=== PATIENT | female | born 1995 | race Caucasian/White ===

== ENCOUNTER 2018-04-08 16:17 | Emergency (ER) | payer MEDICAID ==
[2018-04-08 16:55] VITALS: BP 110/69
--- NOTE | 2018-04-08 17:31 | RADIOLOGY REPORT (SQ) ---
EXAM DESCRIPTION: HAND RIGHT 3 VIEWS COMPLETED DATE/TIME: 04/08/2018 5:19 pm REASON FOR STUDY: punched fixed object punched a dashboard 3 days ago, right hand pain COMPARISON: 03/30/2012 right hand three views EXAM PARAMETERS: NUMBER OF VIEWS: Three views. TECHNIQUE: AP, lateral and oblique radiographic images acquired of the right hand. LIMITATIONS: None. FINDINGS: MINERALIZATION: Normal. BONES: No acute fracture or dislocation. No worrisome bone lesions. JOINTS: No effusions. SOFT TISSUES: No soft tissue swelling. No foreign body. OTHER: No other significant finding. IMPRESSION: NEGATIVE STUDY OF THE RIGHT HAND. NO RADIOGRAPHIC EVIDENCE OF ACUTE INJURY. TECHNICAL DOCUMENTATION: JOB ID: [id number] [employer]- All Rights Reserved Reading location - IP/workstation name: [email or web address]
[2018-04-08] MEDS ORDERED: IBUPROFEN 600 MG TABLET PO ONE (18:18)
--- NOTE | 2018-04-08 18:21 | ER Document Report ---
HPI - HPI Pain Level: 4 Notes: Patient is a 23-year-old female who presents with chief complaint of right hand pain after she punched the dashboard in the car just prior to arrival. - CONSTITUTIONAL Constitutional: DENIES: Fever, Chills - EENT EENT: DENIES: Sore Throat, Ear Pain, Eye problems - NEURO Neurology: DENIES: Headache, Weakness, Vision blurred, Dizzinesss / Vertigo - CARDIOVASCULAR Cardiovascular: DENIES: Chest pain - RESPIRATORY Respiratory: DENIES: Trouble Breathing, Coughing - GASTROINTESTINAL Gastrointestinal: DENIES: Abdominal Pain, Black / Bloody Stools - URINARY Urinary: DENIES: Dysuria, Urgency, Frequency - REPRODUCTIVE Reproductive: DENIES: : - MUSCULOSKELETAL Musculoskeletal: REPORTS: Extremity pain Past Medical History - General Information source: Patient - Social History Smoking Status: Never Smoker Chew tobacco use (# tins/day): No Frequency of alcohol use: None Drug Abuse: None Family History: CAD, DM, Hypertension Patient has suicidal ideation: No Patient has homicidal ideation: No Neurological Medical History: Reports: Hx Migraine Renal/ Medical History: Denies: Hx Peritoneal Dialysis Psychiatric Medical History: Reports: Hx Anxiety, Hx Depression Past Surgical History: Reports: Hx Section - Immunizations Immunizations up to date: Yes Hx Diphtheria, Pertussis, Tetanus Vaccination: Yes Vertical Provider Document - CONSTITUTIONAL Notes: PHYSICAL EXAMINATION: GENERAL: Well-appearing, well-nourished and in no acute distress. HEAD: Atraumatic, normocephalic. EYES: Pupils equal round extraocular movements intact, conjunctiva are normal. ENT: Nares patent NECK: Normal range of motion LUNGS: No respiratory distress Musculoskeletal: Normal range of motion, swelling noted to dorsal surface of right hand over the fourth and fifth metacarpal. Capillary refill less than 3 seconds, normal motor and sensation distal to injury. NEUROLOGICAL: Normal speech, normal gait. PSYCH: Normal mood, normal affect. SKIN: Warm, Dry, normal turgor, no rashes or lesions noted. - INFECTION CONTROL TRAVEL OUTSIDE OF THE [place] IN LAST 30 DAYS: No Course - Re-evaluation Re-evalutation: 04/08/18 18:20 X-rays are negative for any acute findings, cap refill less than 3 seconds, normal motor and sensation distal to injury. Patient will be placed in Blaze wrap for comfort. Patient will be instructed to take ibuprofen for pain. Patient will be discharged in stable condition. - Vital Signs Vital signs: Temp Pulse Resp BP Pulse Ox 98.7 F 57 L 16 110/69 100 04/08/18 16:54 04/08/18 16:54 04/08/18 16:54 10 16:54 04/08/18 16:54 Discharge - Discharge Clinical Impression: Hand contusion Qualifiers: Encounter type: initial encounter Laterality: right Qualified Code(s): S60.221A - Contusion of right hand, initial encounter Condition: Stable Disposition: HOME, SELF-CARE Additional Instructions: Contusion Your injury has resulted in a contusion -- a crushing of the deep tissues. No injury to important structures was detected during the physician's exam. Contusions vary in the amount of pain they cause, and in the length of time required for healing. Typically, the area will become bruised, and will remain painful to touch for two or three weeks. However, most patients are back to working and playing within a few days. After the initial period of rest and cold-packs, your symptoms (together with the doctor's recommendations) will determine how rapidly you can get back to full activity. Usually this means "do what feels okay, but don't do things that hurt." If re-examination was recommended, it's important to follow up as instructed. Call the doctor or return any time if pain increases, if swelling becomes severe, if you develop numbness or weakness in an injured extremity, or if any other alarming symptoms occur. Your x-ray was negative today for any acute findings such as fractures or dislocations. Please use the Blaze wrap as needed for comfort. Ice and elevate the area this will help with the pain and inflammation. Take ibuprofen 600 mg every 6 hours for the pain. Forms: Return to Work Referrals: RAMON TUTTLE MD [NO LOCAL MD] - Follow up as needed
== END 2018-04-08 18:31 | disposition home or self-care (01) ==
LOC: ER 16:17
DX: S60.221A Contusion of right hand, initial encounter (principal); M79.641 Pain in right hand; W22.8XXA Striking against or struck by other objects, initial encounter
CPT/HCPCS: 99283; 73130; J3490

== ENCOUNTER 2018-05-11 21:37 | Emergency (ER) | payer MEDICAID ==
--- NOTE | 2018-05-11 22:46 | RADIOLOGY REPORT (SQ) ---
EXAM DESCRIPTION: XR HAND 3 OR MORE VIEWS COMPLETED DATE/TME: 05/11/2018 21:46 CLINICAL HISTORY: 23 years Female, pain COMPARISON: None. Findings: Bones, joints, and soft tissues of the RIGHT XR HAND 3 VIEWS appear intact. IMPRESSION: No acute findings.
[2018-05-11] MEDS ORDERED: CEPHALEXIN 500 MG CAPSULE PO ONE (23:14)
[2018-05-11] MEDS ORDERED: DIPH/PERTUSS(ACELL)/TETANUS VAC/PF 0.5 ML SYR (>=10YO) IM ONE (23:15)
[2018-05-11] MEDS ORDERED: LIDOCAINE 1% INJ-PF (10 MG/ML) 30 ML SDV INJ ONE (23:15)
--- NOTE | 2018-05-11 23:15 | ER Document Report ---
ED Hand/Wrist Injury - General Chief Complaint: Hand Injury Stated Complaint: RIGHT HAND PAIN Time Seen by Provider: 05/11/18 22:20 Mode of Arrival: Ambulatory Information source: Patient Notes: 23-year-old female presented to ED for complaint of laceration to the inner aspect of the palm of her right hand. She states she was using a broken broom when it caused a laceration. Patient's complaint of pain to the area but bleeding was controlled. Patient states she does not would know when her last tetanus shot was. 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 She is alert and oriented respirations regular and unlabored speaking in full sentences walks with a even steady gait. TRAVEL OUTSIDE OF THE [place] IN LAST 30 DAYS: No - HPI Injury to: Palm Onset: Just prior to arrival Where: Home, Indoors Timing: Still present Quality of pain: Burning Severity: Moderate Pain Level: 3 Context: Laceration - Related Data Allergies/Adverse Reactions: No Known Allergies Allergy (Verified 04/08/18 16:19) Past Medical History - General Information source: Patient - Social History Smoking Status: Current Every Day Smoker Cigarette use (# per day): Yes - ppd Smoking Education Provided: Yes - 4 min Frequency of alcohol use: None Drug Abuse: None Occupation: house keeping Lives with: Spouse/Significant other Family History: CAD, DM, Hypertension Patient has suicidal ideation: No Patient has homicidal ideation: No - Past Medical History Cardiac Medical History: Reports: None Pulmonary Medical History: Reports: None EENT Medical History: Reports: None Neurological Medical History: Reports: Hx Migraine Endocrine Medical History: Reports: None Renal/ Medical History: Reports: None Malignancy Medical History: Reports: None GI Medical History: Reports: None Musculoskeletal Medical History: Reports None Skin Medical History: Reports None Psychiatric Medical History: Reports: Hx Anxiety, Hx Bipolar Disorder, Hx Depression, Hx Schizophrenia Traumatic Medical History: Reports: None Infectious Medical History: Reports: None Past Surgical History: Reports: Hx Section - Immunizations Immunizations up to date: Yes Hx Diphtheria, Pertussis, Tetanus Vaccination: Yes Review of Systems - Review of Systems Notes: REVIEW OF SYSTEMS: CONSTITUTIONAL : Denies fever, chills, or sweats. Denies recent illness. EENT: Denies eye, ear, throat, or mouth pain or symptoms. Denies nasal or sinus congestion or discharge. Denies throat, tongue, or mouth swelling or difficulty swallowing. CARDIOVASCULAR: Denies chest pain. Denies palpitations or racing or irregular heart beat. Denies ankle edema. RESPIRATORY: Denies cough, cold, or chest congestion. Denies shortness of breath, difficulty breathing, or wheezing. GASTROINTESTINAL: Denies abdominal pain or distention. Denies nausea, vomiting , or diarrhea. Denies blood in vomitus, stools, or per rectum. Denies black, tarry stools. Denies constipation. GENITOURINARY: Denies difficulty urinating, painful urination, burning, frequency, blood in urine, or discharge. FEMALE GENITOURINARY: Denies vaginal bleeding, heavy or abnormal periods, irregular periods. Denies vaginal discharge or odor. MUSCULOSKELETAL: Denies back or neck pain or stiffness. Denies joint pain or swelling. SKIN: Cut to the palm of her right hand she states she obtained this laceration while using a broken broom to sweep the floor at home tonight. She denies any other injuries or complaints. HEMATOLOGIC : Denies easy bruising or bleeding. LYMPHATIC: Denies swollen, enlarged glands. NEUROLOGICAL: Denies confusion or altered mental status. Denies passing out or loss of consciousness. Denies dizziness or lightheadedness. Denies headache. Denies weakness or paralysis or loss of use of either side. Denies problems with gait or speech. Denies sensory loss, numbness, or tingling. Denies seizures. PHYSICAL EXAMINATION: GENERAL: Well-appearing, well-nourished and in no acute distress. HEAD: Atraumatic, normocephalic. EYES: Pupils equal round and reactive to light, extraocular movements intact, conjunctiva are normal. ENT: Nares patent, oropharynx clear without exudates. Moist mucous membranes. NECK: Normal range of motion, supple without lymphadenopathy LUNGS: Breath sounds clear to auscultation bilaterally and equal. No wheezes rales or rhonchi. HEART: Regular rate and rhythm without murmurs ABDOMEN: Soft, nontender, nondistended abdomen. No guarding, no rebound. No masses appreciated. Female : deferred Musculoskeletal: Normal range of motion, no pitting or edema. No cyanosis. NEUROLOGICAL: Cranial nerves grossly intact. Normal speech, normal gait. Normal sensory, motor exams PSYCH: Normal mood, normal affect. SKIN: Small laceration to the medial palm of her right hand. Bleeding is controlled. No signs or symptoms of any inflammation infection or drainage. There are several small scratches around the laceration. The laceration is open and will need to be sutured. PSYCHIATRIC: Denies anxiety or stress. Denies depression, suicidal ideation, or homicidal ideation. ALL OTHER SYSTEMS REVIEWED AND NEGATIVE. Dictation was performed using [employer] voice recognition software Physical Exam - Vital signs Vitals: Temp Pulse Resp BP Pulse Ox 98.3 F 57 L 18 107/68 100 05/11/18 21:55 05/11/18 21:55 05/11/18 21:55 05/11/18 21:55 05/11/18 21:55 Course - Vital Signs Vital signs: Temp Pulse Resp BP Pulse Ox 97.9 F 61 18 105/70 98 05/12/18 00:46 05/12/18 00:46 05/12/18 00:46 05/12/18 00:46 05/12/18 00:46 Procedures - Laceration/Wound Repair Right Hand Time completed: 00:15 Wound length (cm): 2 Wound's Depth, Shape: Superficial, Linear, Other - Several other scratches that did not need to be sutured Laceration pre-procedure: Sterile PPE donned, Sterile drapes applied, Shur- Clens applied Anesthetic type: 1% Lidocaine Volume Anesthetic (mLs): 4 Wound explored: Contaminated Irrigated w/ Saline (mLs): 300 Wound Repaired With: Sutures Suture Size/Type: 5:0, Ethilon Number of Sutures: 3 Layer Closure?: No Post-procedure wound care: Sterile dressing applied Post-procedure NV exam normal: Yes Complications: Yes Discharge - Discharge Clinical Impression: Laceration of right palm without complication Qualifiers: Encounter type: initial encounter Qualified Code(s): S61.411A - Laceration without foreign body of right hand, initial encounter Condition: Stable Disposition: HOME, SELF-CARE Instructions: Family Physicians / Practices Additional Instructions: Hand Laceration A laceration on the hand can present special problems. It may be difficult to keep the wound dry. Motion of the fingers can disturb the healing edges. Your work may involve exposure to damaging chemicals or water. Keep the wound clean and dry. If you can't keep the cut dry, undisturbed, and free of chemical exposure, please discuss this with the doctor. If any water or chemical gets onto the dressing, remove it, blot the wound dry, then apply a fresh bandage. Dressings should be changed every day. If you feel the stitches pulling as you move the hand, a splint or other form of protection is needed. If any signs of infection occur (swelling, redness, increasing tenderness, red streaks, tender lumps in the armpit, or fever), see the doctor immediately. Did not disturb the dressing for the first 24 hours after that you need to clean the hand 3 times a day for 3 days and then at least twice a day until your sutures are taken out. SOAP CLEANSING: Gently wash the wound daily using a mild soap (like Ivory, Phisoderm, Neutrogena). Use warm water, rubbing gently until all debris, ooze, and crusting have been washed from the wound. Allow to dry briefly (about 10 minutes) after cleaning. ANTIBIOTIC OINTMENT PROTECTION: Your wounds are such that dressing them is not practical or optional. After cleansing, you should apply a thin coating of antibiotic ointment ( Bacitracin, not Neosporin) to the wounds at least three times daily. This lessens infection risk, and may decrease the amount of scarring. Use a q-tip or dull butter knife, not your finger, to apply this ointment. Any debris or ooze which builds up in the ointment should be gently rubbed off with a sterile gauze pad. Harder crusting may need to be gently scrubbed off with a clean wash cloth with soap and warm water, perhaps applying a warm, wet wash cloth to the wound for ten minutes first. Development of redness, severe itching, or blistering may mean allergy to the ointment. See the doctor. TETANUS IMMUNIZATION GIVEN: You have been given an immunization against tetanus. Please record this in your records. In general, a booster is needed only once every 10 years. The tetanus shot protects against tetanus or "lockjaw," which is a complication of certain wound infections (the tetanus shot cannot protect against the actual infection). The immunization site may become warm and red due to local reaction. If this occurs, apply warm compresses and take aspirin or ibuprofen to reduce inflammation and discomfort. Return for evaluation if the reaction becomes severe. Cephalexin The antibiotic you've been prescribed is a member of the cephalosporin class. This type of antibiotic covers a wide variety of infections, including those of the skin, lungs, and urinary tract. It's useful for staph infections. This antibiotic is slightly similar to the penicillin family. In rare cases , a person who is allergic to penicillin will also be allergic to this medication. If you have had a severe allergic reaction to penicillin, and have not taken this antibiotic since that time, notify your doctor. Antibiotics which cover many germs ("broad spectrum" antibiotics) are more likely to cause diarrhea or "yeast" infections. Women prone to vaginal yeast problems may suffer an attack after taking this antibiotic. In infants, oral thrush (white spots "stuck" on the cheek) or yeast diaper rash may result. See your doctor if these problems occur. Call at once if you develop itching, hives , shortness of breath, or lightheadedness. FOLLOW-UP CARE: Please follow-up with your primary physician in ___3__ days for an infection check and dressing change. Your sutures should be removed in __9___ days. To facilitate a timely removal of your sutures, you may return to the Emergency [facility] at [facility]. You do not need to call for an appointment, but the best time to come in for suture removal is early in the morning. If you have been referred to another physician for follow-up care, call that physicians office for an appointment as you were instructed. If you experience a significant change in your laceration, or if you are concerned there may be an infection (swelling, redness, drainage, increasing tenderness, red streaks, tender lumps in the armpit or groin above the laceration, or fever) , return to the Emergency Department immediately re-evaluation. Prescriptions: Cephalexin Monohydrate [Keflex 500 mg Capsule] 500 mg PO Q6H 5 Days capsule Forms: Return to Work
[2018-05-12] MEDS ORDERED: IBUPROFEN 400 MG TABLET PO ONE (00:46)
[2018-05-12 00:48] VITALS: BP 105/70
== END 2018-05-12 00:56 | disposition home or self-care (01) ==
LOC: ER 21:37
DX: S61.411A Laceration without foreign body of right hand, initial encounter (principal); W26.8XXA Contact with other sharp object(s), not elsewhere classified, initial encounter; Y93.E5 Activity, floor mopping and cleaning; Y92.009 Unspecified place in unspecified non-institutional (private) residence as the place of occurrence of the external cause; F17.210 Nicotine dependence, cigarettes, uncomplicated; Z23 Encounter for immunization
CPT/HCPCS: 99406; 99283; 90471; 73130; 90715; 12001; J3490 ×2

== ENCOUNTER 2018-06-13 11:54 | Emergency (ER) | payer MEDICAID ==
[2018-06-13] MEDS ORDERED: ACETAMINOPHEN 325 MG TABLET PO ONE (12:57)
[2018-06-13] MEDS ORDERED: LORATADINE 10 MG TABLET PO ONE (12:57)
[2018-06-13] MEDS ORDERED: PSEUDOEPHEDRINE HCL 30 MG TABLET PO ONE (12:57)
[2018-06-13] MEDS ORDERED: GUAIFENESIN 600 MG TABLET.SA PO ONE (12:57)
[2018-06-13] MEDS ORDERED: DEXAMETHASONE 4 MG TABLET PO ONE (13:32)
[2018-06-13] MEDS ORDERED: PENICILLIN G BENZATHINE 1.2 MILLION UNIT/2 ML DISP.SYRIN IM ONE (13:32)
--- NOTE | 2018-06-13 13:37 | ER Document Report ---
ED Flu Like - General Chief Complaint: Cold Symptoms Stated Complaint: WEAKNESS Time Seen by Provider: 06/13/18 12:30 Mode of Arrival: Ambulatory Information source: Patient Notes: 23-year-old female presented to ED for cough cold congestion body aches with sore throat and productive cough. She states she has had a cough and cold symptoms for 2 weeks. She is alert oriented respirations regular and unlabored speaking in full sentences walks with a even steady gait. TRAVEL OUTSIDE OF THE [place] IN LAST 30 DAYS: No - HPI Onset: Other Timing/Duration: Intermittent Quality of pain: Achy Severity: Moderate Pain Level: 2 Associated symptoms: Body/muscle aches, Chills, Productive cough, Fever, Rhinnorhea, Sinus pain/drainage, Sore throat Similar symptoms previously: Yes Recently seen / treated by doctor: No - Related Data Allergies/Adverse Reactions: No Known Allergies Allergy (Verified 04/08/18 16:19) Past Medical History - Social History Smoking Status: Current Every Day Smoker Cigarette use (# per day): Yes - 4 cigarettes a day Chew tobacco use (# tins/day): No Smoking Education Provided: Yes - 4 minutes Frequency of alcohol use: None Drug Abuse: None Occupation: Housekeeping Lives with: Family Family History: CAD, DM, Hypertension Patient has suicidal ideation: No Patient has homicidal ideation: No - Past Medical History Cardiac Medical History: Reports: None Pulmonary Medical History: Reports: None EENT Medical History: Reports: None Neurological Medical History: Reports: Hx Migraine Endocrine Medical History: Reports: None Renal/ Medical History: Reports: None Malignancy Medical History: Reports: None GI Medical History: Reports: None Musculoskeletal Medical History: Reports None Skin Medical History: Reports None Psychiatric Medical History: Reports: Hx Anxiety, Hx Bipolar Disorder, Hx Depression, Hx Schizophrenia Traumatic Medical History: Reports: None Infectious Medical History: Reports: None Past Surgical History: Reports: Hx Section - Immunizations Immunizations up to date: Yes Hx Diphtheria, Pertussis, Tetanus Vaccination: Yes Review of Systems - Review of Systems Constitutional: Fever, Recent illness EENT: Nose congestion, Nose discharge, Throat pain Cardiovascular: No symptoms reported Respiratory: Cough Gastrointestinal: No symptoms reported Genitourinary: No symptoms reported Female Genitourinary: No symptoms reported Musculoskeletal: No symptoms reported Skin: No symptoms reported Hematologic/Lymphatic: No symptoms reported Neurological/Psychological: No symptoms reported -: Yes All other systems reviewed and negative Physical Exam - Vital signs Vitals: Temp Pulse Resp BP Pulse Ox 97.8 F 60 16 101/44 L 99 06/13/18 12:20 06/13/18 12:20 06/13/18 12:20 06/13/18 12:20 06/13/18 12:20 Interpretation: Normal - General General appearance: Appears well, Alert - HEENT Head: Normocephalic, Atraumatic Eyes: Normal Pupils: PERRL Ears: Normal External canal: Normal Tympanic membrane: Normal Sinus: Normal Nasal: Purulent discharge, Swelling Mouth/Lips: Normal Mucous membranes: Normal Pharynx: Erythema, Post nasal drainage, Tonsillar hypertrophy. No: Exudate Neck: Normal - Respiratory Respiratory status: No respiratory distress Chest status: Nontender Breath sounds: Productive cough Chest palpation: Normal - Cardiovascular Rhythm: Regular Heart sounds: Normal auscultation Murmur: No - Abdominal Inspection: Normal Distension: No distension Bowel sounds: Normal Tenderness: Nontender Organomegaly: No organomegaly - Back Back: Normal, Nontender - Extremities General upper extremity: Normal inspection, Nontender, Normal color, Normal ROM , Normal temperature General lower extremity: Normal inspection, Nontender, Normal color, Normal ROM , Normal temperature, Normal weight bearing. No: Rosendo's sign - Neurological Neuro grossly intact: Yes Cognition: Normal Orientation: AAOx4 [place] Coma Scale Eye Opening: Spontaneous Alli Coma Scale Verbal: Oriented Alli Coma Scale Motor: Obeys Commands Alli Coma Scale Total: 15 Speech: Normal Motor strength normal: LUE, RUE, LLE, RLE Sensory: Normal - Psychological Associated symptoms: Normal affect, Normal mood - Skin Skin Temperature: Warm Skin Moisture: Dry Skin Color: Normal Course - Vital Signs Vital signs: Temp Pulse Resp BP Pulse Ox 98.0 F 82 16 121/73 100 06/13/18 14:03 06/13/18 14:03 06/13/18 14:03 06/13/18 14:03 06/13/18 14:03 Discharge - Discharge Clinical Impression: Strep pharyngitis URI (upper respiratory infection) Qualifiers: URI type: unspecified URI Qualified Code(s): J06.9 - Acute upper respiratory infection, unspecified Condition: Stable Disposition: HOME, SELF-CARE Instructions: Family Physicians / Practices Additional Instructions: STREP THROAT: Your sore throat is due to the streptococcus germ (strep throat). Strep throat usually makes you feel quite ill with fever and aches, headache, swollen sore throat, and tender bumps under the angles of the jaw. Strep throat requires antibiotic treatment. Although the sore throat may go away by itself, complications such as rheumatic fever, kidney disease, or throat abscess can occur. We usually prescribe antibiotics by mouth. Be sure to take the medicine until it's gone. If you stop early, the strep may come back. If you are vomiting, are severely ill, or can't remember to take pills, we can give you an antibiotic shot. Take acetaminophen or ibuprofen for pain and fever. Sip frequent clear liquids, or use popsicles or ice chips. Anesthetic sprays or lozenges may help. Make sure the air in the room is not too dry. Avoid using decongestants or antihistamines. Call the doctor if there is no improvement in three days, or if you have difficulty breathing, increasing throat pain, high fever, rash, or frequent vomiting. UPPER RESPIRATORY ILLNESS: You have a viral infection of the respiratory passages -- a "cold." This common infection causes nasal congestion, drainage, and often sore throat and cough. It is highly contagious. The disease usually lasts about 10 to 14 days. There is no "cure" for the viral infection -- it must run its course. If there is a complication, such as bacterial infection in the nose, sinuses, middle ear, or bronchial tubes, antibiotics may be required. The antibiotics won't affect the virus. Drink plenty of fluids. A humidifier may help. An expectorant medication or decongestant may make you more comfortable. Use acetaminophen or ibuprofen for fever or aches. See the doctor if fever persists over two days, if there is any significant worsening of your symptoms, or if you simply fail to improve as expected. DECONGESTANT MEDICATION: A decongestant medicine has been suggested. Often this medicine is combined in the same tablet with an antihistamine or expectorant. This type of medicine is helpful in treating a bad cold or sinus condition, as well as in treatment of the nasal congestion of hay fever. It is not of much benefit for lung infections. Decongestant medicines are related to stimulants. They can cause an increase in blood pressure and heart rate. Persons with heart disease and high blood pressure should not take decongestants without discussing this with the physician. If you develop palpitations, chest pain, headache, or tremors, stop the medicine and consult your physician. COUGH-SUPPRESSANT & EXPECTORANT MEDICATION: You are to use a cough medication as needed for relief of symptoms. This medicine is a combination of an expectorant (to make the mucous thinner and more easily "coughed up") and a cough suppressant (to reduce the frequency of coughing). The cough-suppressant medicine is related to narcotics. You may experience mild nausea and sleepiness. Some patients who are very sensitive to narcotics may have stomach pain from this medicine. Taking the medicine with food reduces these side effects. Do not drive or work with machinery until you know how this medicine affects you. The expectorant should have no side effects. Iodine-containing expectorants (such as organidin) should not be taken by persons with active thyroid disease unless approved by your doctor. Call the doctor if you develop shortness of breath, hives, rash, itching, lightheadedness, or severe nausea and vomiting USE OF ACETAMINOPHEN (Tylenol): Acetaminophen may be taken for pain relief or fever control. It's much safer than aspirin, offering a wider range of "safe" dosages. It is safe during . Some brand names are Tylenol, Panadol, Datril, Anacin 3, Tempra, and Liquiprin. Acetaminophen can be repeated every four hours. The following are maximum recommended dosages: >89 pounds or adults 650 mg to 900 mg Acetaminophen can be repeated every four hours. Maximum dose not to exceed 4000 mg a day. STEROID MEDICATION: You have been given a medicine of the cortisone/steroid class. This medication is used to control inflammation or allergy. It is usually only given for a short period of time, until the acute process subsides. There are usually no side effects from short-term use of cortisone-like medications. Some persons feel an increased sense of well-being and are not sleepy at bedtime. Long-term use of cortisone medications is best avoided, unless required for a severe condition. If your condition does not remit, or relapses after the course of corticosteroid medication, you should consult your physician. You were given penicillin G IM which is all you need for your strep as well as Decadron 10 mg by mouth. You also given Sudafed 80 mg, Claritin 10 mg, Mucinex 600 mg and Tylenol 650 mg for your cough cold congestion and body aches. You have both a strep throat and a upper respiratory infection. FOLLOW-UP CARE: If you have been referred to a physician for follow-up care, call the physician s office for an appointment as you were instructed or within the next two days. If you experience worsening or a significant change in your symptoms, notify the physician immediately or return to the Emergency Department at any time for re-evaluation. Forms: Return to Work
[2018-06-13 14:04] VITALS: BP 121/73
== END 2018-06-13 14:11 | disposition home or self-care (01) ==
LOC: ER 11:54
DX: J02.0 Streptococcal pharyngitis (principal); R05 Cough; R09.81 Nasal congestion; M79.10 Myalgia, unspecified site; J34.89 Other specified disorders of nose and nasal sinuses; R50.9 Fever, unspecified; F17.210 Nicotine dependence, cigarettes, uncomplicated; Z71.6 Tobacco abuse counseling; R09.82 Postnasal drip
CPT/HCPCS: 99406; 99284; 96372; 87880; J3490 ×4; J0561

== ENCOUNTER 2018-06-15 20:16 | Emergency (ER) | payer MEDICAID ==
[2018-06-15] MEDS ORDERED: ONDANSETRON HCL INJ/PF 4 MG/2 ML SDV IV ONE (22:46)
[2018-06-15] MEDS ORDERED: NORMAL SALINE 1000 ML 1,000 ML IV ONE (22:49)
[2018-06-15] MEDS ORDERED: KETOROLAC TROMETHAMINE INJ/PF 30 MG/1 ML SDV IV ONE (22:49)
[2018-06-15] MEDS ORDERED: LOPERAMIDE HCL 2 MG CAPSULE PO ONE (22:49)
--- NOTE | 2018-06-15 22:49 | ER Document Report ---
ED Flu Like - General Mode of Arrival: Ambulatory Information source: Patient TRAVEL OUTSIDE OF THE [place] IN LAST 30 DAYS: No <ANTWAN HILLIARD - Last Filed: 06/16/18 00:49> <NEISHA MCGUIRE - Last Filed: 06/16/18 05:16> - General Chief Complaint: Flu Symptoms Stated Complaint: HEADACHE/BODY PAINS Time Seen by Provider: 06/15/18 22:36 Notes: 23 year old female that presents to the emergency department today with complaints of a cold for the last 3 weeks. Patient states that she was seen here 3 days ago and diagnosed with strep throat and was given an injection of antibiotics and felt better for a day but now is feeling worse. Patient states her symptoms include nausea, diarrhea, fevers, chills, sore throat, nasal congestion, chest pain, cough, and vomiting. Patient denies dysuria. (ANTWAN HILLIARD) - Related Data Allergies/Adverse Reactions: No Known Allergies Allergy (Verified 04/08/18 16:19) Past Medical History - General Information source: Patient - Social History Smoking Status: Never Smoker Cigarette use (# per day): No Frequency of alcohol use: None Drug Abuse: None Lives with: Family Family History: CAD, DM, Hypertension Neurological Medical History: Reports: Hx Migraine Psychiatric Medical History: Reports: Hx Anxiety, Hx Bipolar Disorder, Hx Depression, Hx Schizophrenia Past Surgical History: Reports: Hx Section - Immunizations Immunizations up to date: Yes Hx Diphtheria, Pertussis, Tetanus Vaccination: Yes <ANTWAN HILLIARD - Last Filed: 06/16/18 00:49> Review of Systems - Review of Systems Constitutional: See HPI, Chills, Fever EENT: See HPI, Nose congestion, Throat pain Cardiovascular: See HPI, Chest pain Respiratory: See HPI, Cough Gastrointestinal: See HPI, Diarrhea, Nausea, Vomiting Genitourinary: denies: Dysuria Female Genitourinary: No symptoms reported Musculoskeletal: No symptoms reported Skin: No symptoms reported Hematologic/Lymphatic: No symptoms reported Neurological/Psychological: No symptoms reported -: Yes All other systems reviewed and negative <ANTWAN HILLIARD - Last Filed: 06/16/18 00:49> Physical Exam <ANTWAN HILLIARD - Last Filed: 06/16/18 00:49> <NEISHA MCGUIRE - Last Filed: 06/16/18 05:16> - Vital signs Vitals: Temp Pulse Resp BP Pulse Ox 98.5 F 73 16 118/64 99 06/15/18 20:18 06/15/18 20:18 06/15/18 20:18 06/15/18 20:18 06/15/18 20:18 - Notes Notes: PHYSICAL EXAM GENERAL: Alert, interacts well. Appears somewhat uncomfortable. HEAD: Normocephalic, atraumatic. EYES: Pupils equal, round, and reactive to light. Extraocular movements intact. ENT: Oral mucosa moist, tongue midline. Mild injection of the posterior oropharynx. NECK: Full range of motion. Supple. Trachea midline. LUNGS: Clear to auscultation bilaterally, no wheezes, rales, or rhonchi. No respiratory distress. HEART: Regular rate and rhythm. No murmurs, gallops, or rubs. ABDOMEN: Soft, non-tender. Non-distended. Bowel sounds present in all 4 quadrants. No guarding, rigidity, or rebound. EXTREMITIES: Moves all 4 extremities spontaneously. NEUROLOGICAL: Alert and oriented x3. Normal speech. PSYCH: Normal affect, normal mood. SKIN: Warm, dry, normal turgor. No rashes or lesions noted. (ANTWAN HILLIARD) Course <ANTWAN HILLIARD - Last Filed: 06/16/18 00:49> - Laboratory Result Diagrams: 06/16/18 01:12 06/16/18 01:12 <NEISHA MCGUIRE - Last Filed: 06/16/18 05:16> - Re-evaluation Re-evalutation: 06/16/18 02:28 CBC grossly unremarkable, CMP unremarkable, CK normal, test negative, chest x-ray unremarkable. Patient has had no further vomiting or diarrhea since being here, was able to keep her Imodium down. Patient still complains of muscle aches despite Toradol. Patient offered another dose of Zofran and some Phenergan and oral challenge. Patient states she only has one ability to have a ride home tonight and they are [employer], states she must leave in the next 30-45 minutes or else he will be late for work in the morning and he will up to leave without her. Discussed with patient that there are no signs of life- threatening dehydration, she is welcome to go home with Zofran and Phenergan and do an oral challenge at home instead. Patient will return should she have persistent vomiting despite Zofran and Phenergan. Discharged home. (NEISHA MCGUIRE) - Vital Signs Vital signs: Temp Pulse Resp BP Pulse Ox 98.3 F 68 14 117/68 98 06/16/18 02:48 06/16/18 02:48 06/16/18 02:48 06/16/18 02:48 06/16/18 02:48 - Laboratory Laboratory results interpreted by me: 06/16/18 06/16/18 01:12 01:12 RBC 3.59 L Hct 34.2 L MCH 33.8 H Chloride 110 H Calcium 8.3 L Alkaline Phosphatase 37 L Creatine Kinase 25 L Total Protein 5.8 L Albumin 3.2 L Discharge <ANTWAN HILLIARD - Last Filed: 06/16/18 00:49> <NEISHA MCGUIRE - Last Filed: 06/16/18 05:16> - Discharge Clinical Impression: Nausea vomiting and diarrhea, Cough, Myalgia Condition: Stable Disposition: HOME, SELF-CARE Additional Instructions: Nausea or Vomiting, Nonspecific Vomiting (or nausea without vomiting) can be caused by many different problems. Of course, it can mean that something's wrong with the stomach, such as "stomach flu," ulcers, or inflammation. But it can also be a symptom of a problem that has nothing to do with the stomach or intestines. Vomiting is common with severe headaches, earaches, and tonsillitis. In most cases, curing the vomiting depends on fixing the problem that caused it. For temporary relief, we may use an anti-nausea medicine. For home use, we can prescribe suppositories, chewable pills, pills that dissolve in the mouth, or liquid anti-nausea drugs. If the vomiting seems to be caused by a problem in the stomach, acid-suppressing drugs may be prescribed as well. It's important to avoid dehydration. Sip clear liquids. Take increasing amounts of fluid over the first 24 hours. Then start small amounts of bland foods (such as dry toast, applesauce, mashed potato). Avoid aspirin, tobacco, and alcohol. Gradually resume your usual diet. If the vomiting worsens, if the problem that's making you vomit worsens, or if there's evidence of bleeding in the stomach (such as black, tarry stool, bloody or black vomit, or lightheadedness), you should return immediately. Call your doctor if you aren't improved in 24 to 36 hours. You may take Imodium as directed on the box [id number]. You may take the Zofran and the Phenergan as prescribed for nausea. Please use ibuprofen (Motrin or Advil) 600-800 mg every 8 hours as needed for pain or fever. You may also use acetaminophen (Tylenol) 1000 mg every 4-6 hours as needed for pain or fever. Please be aware that many medications contain acetaminophen, do not exceed a total of 1000 mg of acetaminophen every 6 hours. Prescriptions: Ondansetron [Zofran Odt 4 mg Tablet] 1 - 2 tab PO Q4H PRN #15 tab.rapdis PRN Reason: For Nausea/Vomiting Promethazine HCl [Phenergan 25 mg Tablet] 1 - 2 tab PO Q6H PRN #15 tablet PRN Reason: Forms: Return to Work Referrals: DAISY PHILIP MD [COMMUNITY BASED STAFF] - Follow up as needed Scribe Attestation: 06/16/18 05:16 I personally performed the services described in the documentation, reviewed and edited the documentation which was dictated to the scribe in my presence, and it accurately records my words and actions. (NEISHA MCGUIRE) Scribe Documentation - Scribe Written by Victorianoe:: Andrew Parr, 06/16/2018 [id number] acting as scribe for :: Teresa <ANTWAN HILLIARD - Last Filed: 06/16/18 00:49>
--- NOTE | 2018-06-15 23:16 | RADIOLOGY REPORT (SQ) ---
EXAM DESCRIPTION: XR CHEST 2 VIEWS COMPLETED DATE/TME: 06/15/2018 22:49 CLINICAL HISTORY: 23 years, Female, cough, hemoptysis COMPARISON: None. NUMBER OF VIEWS: 2 TECHNIQUE: Frontal and lateral views of the chest LIMITATIONS: None. FINDINGS: Heart size is normal. Lungs are clear. No pneumothorax IMPRESSION: Negative chest copyright 2010 [employer]- All Rights Reserved
[2018-06-16 01:25] LABS: ABSOLUTE EOSINOPHILS # (AUTO) 0.2 10^3/uL (0.0-0.6); ABSOLUTE LYMPHOCYTES (AUTO) 3.4 10^3/uL (0.5-4.7); ABSOLUTE MONOCYTES (AUTO) 0.5 10^3/uL (0.1-1.4); ABSOLUTE NEUT (AUTO) 4.1 10^3/uL (1.7-8.2); BASOPHILS % (AUTO) 0.6 % (0-2); EOSINOPHILS % (AUTO) 1.9 % (0-6); HEMATOCRIT 34.2 % (36.0-47.0); HEMOGLOBIN 12.1 g/dL (12.0-15.5); LYMPHOCYTES % (AUTO) 41.2 % (13-45); MEAN CORPUSCULAR HEMOGLOBIN 33.8 pg (27.0-33.4); MEAN CORPUSCULAR HGB CONC 35.5 g/dL (32.0-36.0); MEAN CORPUSCULAR VOLUME 95 fl (80-97); MONOCYTES % (AUTO) 6.4 % (3-13); PLATELET COUNT 200 10^3/uL (150-450); RED BLOOD COUNT 3.59 10^6/uL (3.72-5.28); RED CELL DISTRIBUTION WIDTH 13.1 % (11.5-14.0); SEGMENTED NEUTROPHILS % (AUTO) 49.9 % (42-78); TOTAL CELLS COUNTED % (AUTO) 100 %; WHITE BLOOD COUNT 8.2 10^3/uL (4.0-10.5)
[2018-06-16 01:36] LABS: ALANINE AMINOTRANSFERASE 18 U/L (9-52); ALBUMIN 3.2 g/dL (3.5-5.0); ALKALINE PHOSPHATASE 37 U/L (38-126); ANION GAP 7 (5-19); ASPARTATE AMINO TRANSFERASE 19 U/L (14-36); BILIRUBIN,DIRECT 0.2 mg/dL (0.0-0.4); BILIRUBIN,TOTAL 0.2 mg/dL (0.2-1.3); BLOOD UREA NITROGEN 14 mg/dL (7-20); CALCIUM 8.3 mg/dL (8.4-10.2); CARBON DIOXIDE 22 mmol/L (22-30); CHLORIDE 110 mmol/L (98-107); CREATINE KINASE 25 U/L (30-135); GLUCOSE 92 mg/dL (75-110); POTASSIUM 4.3 mmol/L (3.6-5.0); SODIUM 139.3 mmol/L (137-145); TOTAL PROTEIN 5.8 g/dL (6.3-8.2)
[2018-06-16] MEDS ORDERED: ONDANSETRON HCL INJ/PF 4 MG/2 ML SDV IV ONE (02:26)
[2018-06-16] MEDS ORDERED: PROMETHAZINE HCL 25 MG TABLET PO ONE (02:26)
[2018-06-16 02:49] VITALS: BP 117/68
== END 2018-06-16 02:49 | disposition home or self-care (01) ==
LOC: ER 20:16
DX: R11.2 Nausea with vomiting, unspecified (principal); R19.7 Diarrhea, unspecified; R05 Cough; M79.10 Myalgia, unspecified site; R50.9 Fever, unspecified; J02.9 Acute pharyngitis, unspecified; R09.81 Nasal congestion; R07.9 Chest pain, unspecified
CPT/HCPCS: 96376; 99284; 96361; 96374; 96375; 36415; 82550; 84703; 85025; 80053; 71046; J3490 ×2; J1885; J2405 ×2; J7030

== ENCOUNTER → 2018-09-07 | Outpatient (CLI) | payer MEDICAID ==
[2018-09-07 10:25] LABS: ABSOLUTE EOSINOPHILS # (AUTO) 0.2 10^3/uL (0.0-0.6); ABSOLUTE LYMPHOCYTES (AUTO) 1.7 10^3/uL (0.5-4.7); ABSOLUTE MONOCYTES (AUTO) 0.5 10^3/uL (0.1-1.4); ABSOLUTE NEUT (AUTO) 3.7 10^3/uL (1.7-8.2); BASOPHILS % (AUTO) 0.5 % (0-2); EOSINOPHILS % (AUTO) 3.9 % (0-6); HEMATOCRIT 38.6 % (36.0-47.0); HEMOGLOBIN 13.6 g/dL (12.0-15.5); LYMPHOCYTES % (AUTO) 26.7 % (13-45); MEAN CORPUSCULAR HEMOGLOBIN 33.4 pg (27.0-33.4); MEAN CORPUSCULAR HGB CONC 35.4 g/dL (32.0-36.0); MEAN CORPUSCULAR VOLUME 94 fl (80-97); MONOCYTES % (AUTO) 8.5 % (3-13); PLATELET COUNT 239 10^3/uL (150-450); RED BLOOD COUNT 4.09 10^6/uL (3.72-5.28); RED CELL DISTRIBUTION WIDTH 12.5 % (11.5-14.0); SEGMENTED NEUTROPHILS % (AUTO) 60.4 % (42-78); TOTAL CELLS COUNTED % (AUTO) 100 %; WHITE BLOOD COUNT 6.2 10^3/uL (4.0-10.5)
[2018-09-07 10:49] LABS: ALANINE AMINOTRANSFERASE 26 U/L (9-52); ALBUMIN 4.3 g/dL (3.5-5.0); ALKALINE PHOSPHATASE 59 U/L (38-126); ANION GAP 9 (5-19); ASPARTATE AMINO TRANSFERASE 18 U/L (14-36); BILIRUBIN,DIRECT 0.1 mg/dL (0.0-0.4); BILIRUBIN,TOTAL 0.5 mg/dL (0.2-1.3); BLOOD UREA NITROGEN 13 mg/dL (7-20); CALCIUM 9.2 mg/dL (8.4-10.2); CARBON DIOXIDE 25 mmol/L (22-30); CHLORIDE 106 mmol/L (98-107); CHOLESTEROL 170.98 mg/dL (0-200); GLUCOSE 93 mg/dL (75-110); SODIUM 140.4 mmol/L (137-145); TOTAL PROTEIN 7.1 g/dL (6.3-8.2); TRIGLYCERIDES 64 mg/dL (<150)
[2018-09-07 11:00] LABS: DIRECT LDL 104 mg/dL (<100)
[2018-09-07 11:49] LABS: FREE T4 (FREE THYROXINE) 1.14 ng/dL (0.78-2.19)
[2018-09-07 12:03] LABS: THYROID STIMULATING HORMONE 1.4 uIU/mL (0.47-4.68)
== END ==
LOC: LAB 09:33
PROVIDERS: ATTEND Physician Assistant
DX: F43.12 Post-traumatic stress disorder, chronic (principal); Z79.899 Other long term (current) drug therapy
CPT/HCPCS: 36415; 80053; 80061; 82652; 83036; 84439; 84443; 85025